=== PATIENT | female | born 1980 | race Caucasian/White ===

== ENCOUNTER 2017-11-02 19:38 | Emergency (ER) | payer OTHER, MEDICAID ==
[~2017-11-02] VITALS: Ht 162.6 cm; Wt 137.0 kg
[~2017-11-02 19:38] MED LIST: ACETAMINOPHEN-1 EAC1 PO; AMOXICILLIN 50500 M1 PO; AMOXICILLIN 50500 MG PO; ATIVAN1 MG PO; AZITHROMYCIN 2250 MG PO; AZURETTE 28 DA1 EACH; BUTALB-APAP-CA1 EACH PO; CARAFATE 1 GM TA1 GM PO; CELEXA20 MG; DONNATAL EXTEN1 EACH PO; ESTRADIOL 1 MG T1 M1; FLEXERIL PO; GLUCOPHAGE500 MG; HYDROCODON-ACE1 EAC7 PO; IBUPROFEN 800800 MG PO; KEFLEX500 MG PO; LEVOTHYROXIN0.075 MG PO; MEDROLDOSEPACK PO; NAPROSYN500 MG PO; NOHOMEMEDICATIONS; NORCO 5-325 TA1 EACH PO; OXYBUTYNIN 5 MG5 M2 PO; PENICILLIN VK500 M1 PO; PREDNISONE50 MG PO; PREVACID30 MG PO; PROAIR HFA8.5 GM IH; PROMETHAZINE12.5 M1 PO; SIMVASTATIN40 MG PO; TESSALON200 MG PO; ULTRAM 50MG TAB50 MG PO; WELLBUTRIN 75 M75 M1; WELLBUTRIN 75 M75 M1 PO
[2017-11-02] MEDS ORDERED: METFORMIN HCL500 MG PO (20:05)
[2017-11-02] MEDS ORDERED: STOOL SOFT50 MG/5 ML PO (20:05)
[2017-11-02] MEDS ORDERED: LIPITOR10 MG PO (20:05)
[2017-11-02] MEDS ORDERED: BUSPIRONE HCL10 MG PO (20:06)
[2017-11-02] MEDS ORDERED: ENABLEX15 MG PO (20:06)
[2017-11-02 20:14] LABS: ABSOLUTE EOSINOPHILS 0.1 thou/uL (0.0-0.7); ABSOLUTE LYMPHOCYTES 2.4 thou/uL (0.8-5.3); ABSOLUTE MONOCYTES 0.3 thou/uL (0.0-1.2); ABSOLUTE NEUTROPHILS 1.7 thou/uL (1.6-8.1); BASOPHILS 0.8 %; HEMATOCRIT 39.6 % (37.0-47.0); HEMOGLOBIN 13.4 gm/dL (12.0-15.0); LYMPHOCYTES 52.2 %; MCH 29.1 pg (26.0-34.0); MCHC 33.8 g/dL (28.0-37.0); MCV 86.3 fL (80.0-100.0); MONOCYTES 7.2 %; MPV 8.2 fl. (7.2-11.1); NUCLEATED RBCS 0 /100WBC; PLATELET COUNT* 223 thou/uL (150-400); POLYS 37.8 %; RBC 4.58 mil/uL (4.20-5.00); RDW-CV 14.3 % (10.5-14.5); WBC 4.6 thou/uL (4.0-11.0)
[2017-11-02 20:22] LABS: CALCIUM 8.6 mg/dL (8.5-10.1); CREATININE 0.9 mg/dL (0.6-1.3); POTASSIUM 3.6 mmol/L (3.5-5.1)
[2017-11-02 20:32] LABS: ALBUMIN 3.6 g/dL (3.4-5.0); TOTAL BILIRUBIN 0.6 mg/dL (<0.1-1.0); TOTAL PROTEIN 7.3 g/dL (6.4-8.2)
[2017-11-02] MEDS ORDERED: PHENERGAN 25 MG25 M1 PO (20:43)
[2017-11-02 21:19] LABS: URINE BILIRUBIN NEGATIVE (Negative); URINE BLOOD NEGATIVE (Negative); URINE CLARITY CLEAR; URINE COLOR YELLOW; URINE GLUCOSE-RANDOM NEGATIVE (Negative); URINE KETONES NEGATIVE (Negative); URINE LEUKOCYTES NEGATIVE (Negative); URINE NITRITE POSITIVE (Negative); URINE PROTEIN TRACE (Negative); URINE SPECIFIC GRAVITY >= 1.030 (1.005-1.030); URINE UROBILINOGEN 0.2 E.U./dl (0.2-1.0)
[2017-11-02 21:41] VITALS: BP 132/69
[2017-11-02 21:57] LABS: BACTERIA >30 Many /HPF (None Seen)
[2017-11-02 21:58] LABS: CASTS None Seen /LPF (None Seen); MUCUS 0-3 Light strn/LPF (None Seen); SQUAMOUS >10 Many /LPF (0-3); URINE WBC 6-15 Few /HPF (0-5)
[2017-11-02 21:59] LABS: CRYSTALS None Seen /LPF (None Seen); URINE RBC 0-2 Rare /HPF (0-2)
== END 2017-11-02 21:38 | disposition home or self-care (01) ==
LOC: M.ERS 19:38
PROVIDERS: Nurse Practitioner Family
DX: K52.9 Noninfective gastroenteritis and colitis, unspecified (principal); G43.909 Migraine, unspecified, not intractable, without status migrainosus; E28.2 Polycystic ovarian syndrome; Z91.040 Latex allergy status; Z88.6 Allergy status to analgesic agent; Z88.8 Allergy status to other drugs, medicaments and biological substances; Z90.710 Acquired absence of both cervix and uterus